=== PATIENT | female | born 1950 | race Caucasian/White ===

== ENCOUNTER 2021-02-17 06:57 | Emergency (ER) | payer MEDICARE, OTHER ==
[~2021-02-17 06:57] MED LIST: ASPIRIN EC81 MG PO
== END 2021-02-17 10:03 | disposition home or self-care (01) ==
LOC: ER1 06:57
DX: M13.871 Other specified arthritis, right ankle and foot (principal); E11.9 Type 2 diabetes mellitus without complications
CPT/HCPCS: 73630; 96372; 99283; J1885

== ENCOUNTER → 2021-07-06 | Outpatient (CLI) | payer MEDICARE, OTHER | LOC: ECHO 11:39 → NM 13:00 | DX: R07.9 Chest pain, unspecified (principal); I47.1 Supraventricular tachycardia; I10 Essential (primary) hypertension; R06.02 Shortness of breath | CPT/HCPCS: ECHO; 78452; 93306; A9502 ==

== ENCOUNTER → 2022-04-13 | Outpatient (CLI) | payer MEDICARE ==
[2022-04-13 16:53] LABS: HEMOGLOBIN 13.5 gm/dl (12.3-15.3); RED BLOOD COUNT 4.45 M/UL (4.00-5.10); WHITE BLOOD COUNT 11.5 K/UL (4.5-11.0)
== END ==
LOC: LAB 16:24
PROVIDERS: Internal Medicine Interventional Cardiology
DX: F41.9 Anxiety disorder, unspecified (principal); M19.90 Unspecified osteoarthritis, unspecified site; I47.1 Supraventricular tachycardia; E78.5 Hyperlipidemia, unspecified; R60.9 Edema, unspecified; I10 Essential (primary) hypertension; E11.9 Type 2 diabetes mellitus without complications
CPT/HCPCS: 36415; 80048; 85025; 85610; 85730; 93005

== ENCOUNTER → 2022-04-19 | Outpatient (CLI) | payer MEDICARE ==
[~2022-04-19] MED LIST changes: +COZAAR 50MG TAB50 MG PO; +GLUCOPHAGE 500500 MG PO; +HAIR SKIN NAIL1 EACH PO; +HYDROCHLOROTH12.5 MG PO; +IRON236 MG PO; +ISOSORBIDE MONO30 MG PO; +LEVEMIR FL100 UNIT/1 SQ; +LOPRESSOR 25 MG25 MG PO; +POTASSIUM99 M3 PO; +VITAMIN C1000 MG PO; +VITAMIN D310 MC2 PO; +ZETIA10 MG PO
== END ==
LOC: CATH 09:00
DX: I25.119 Atherosclerotic heart disease of native coronary artery with unspecified angina pectoris (principal); E11.9 Type 2 diabetes mellitus without complications; I10 Essential (primary) hypertension; E78.00 Pure hypercholesterolemia, unspecified; F41.9 Anxiety disorder, unspecified; M19.90 Unspecified osteoarthritis, unspecified site; I47.1 Supraventricular tachycardia; N60.19 Diffuse cystic mastopathy of unspecified breast; E87.5 Hyperkalemia; E55.9 Vitamin D deficiency, unspecified; J35.01 Chronic tonsillitis; Z79.82 Long term (current) use of aspirin; Z79.84 Long term (current) use of oral hypoglycemic drugs; Z79.1 Long term (current) use of non-steroidal anti-inflammatories (NSAID); Z79.811 Long term (current) use of aromatase inhibitors; Z79.4 Long term (current) use of insulin; Z86.010 Personal history of colon polyps; Z98.49 Cataract extraction status, unspecified eye; Z98.51 Tubal ligation status; Z80.0 Family history of malignant neoplasm of digestive organs; Z82.49 Family history of ischemic heart disease and other diseases of the circulatory system; Z83.49 Family history of other endocrine, nutritional and metabolic diseases; Z80.1 Family history of malignant neoplasm of trachea, bronchus and lung; Z83.3 Family history of diabetes mellitus
CPT/HCPCS: 82962; 85347; 93571; 99152; 99153; C1769; C1887; C1894; J0153; J1644; J2250; J3010; J7040; Q9965